=== PATIENT | female | born 1975 | race Two or more races ===

== ENCOUNTER 2019-02-27 21:11 | Emergency (ER) | payer MEDICAID ==
[~2019-02-27] VITALS: Ht 154.9 cm; Wt 106.6 kg
--- NOTE | 2019-02-27 21:25 | NUR ---
ED Nurse Note: RECIEVED PT FROM [place] WITH C/O INTERMITTENT PAIN IN RIGHT SIDE OF BREAST FOR PAST WEEK, PAIN IS INCREASING, NOTED MORE WHEN MOVING EXTREMITY, DENIES FEVERS, CP, OR ANY OTHER COMPLAITNS OR DISCOMFORTS.
--- NOTE | 2019-02-27 22:00 | NUR ---
ED Nurse Note: RINA TERESA WITH BREAST EXAM, PT TOLERATED WELL, WAITING FOR DISPOSITION.
--- NOTE | 2019-02-27 22:14 | Emergency Room Report ---
History of Present Illness General Chief Complaint: Pain Source: Patient Present Illness HPI 43-year-old female, presents with right breast pain x2 days with no apparent cause, she endorses an achy pain inside the breast, no leakage, no aggravating relieving factors, no radiation of the pain, no nausea no vomiting, no chest pain, no shortness of breath, patient presents for evaluation her last mammogram was years ago. Allergies: Coded Allergies: No Known Allergies (Unverified , 02/27/19) Patient History Past Medical History: see triage record Last Menstrual Period: 02/07/19 Now: No : 4 Para: 3 Reviewed Nursing Documentation: PMH: Agreed; PSxH: Agreed Nursing Documentation-PMH Past Medical History: No Stated History Review of Systems All Other Systems: negative except mentioned in HPI Physical Exam Vital Signs Date Time Temp Pulse Resp B/P (MAP) Pulse Ox O2 Delivery O2 Flow Rate FiO2 02/27/19 21:17 98.2 71 18 121/66 (84) 96 Sp02 EP Interpretation: reviewed, normal General Appearance: well appearing, no apparent distress, alert Head: normocephalic, atraumatic Eyes: bilateral eye PERRL, bilateral eye EOMI ENT: uvula midline, moist mucus membranes Neck: supple, thyroid normal, supple/symm/no masses Respiratory: lungs clear, no respiratory distress, no retraction, no accessory muscle use Cardiovascular #1: normal peripheral pulses, regular rate, rhythm, no edema, no gallop, no murmur, other - Right breast, no apparent masses, guardian family member was Tiffany ALLEN, checked in the right breast, no erythema, Gastrointestinal: non tender, soft, no guarding, no rebound Musculoskeletal: normal inspection Neurologic: alert, oriented x3 Psychiatric: mood/affect normal Skin: no rash, warm/dry Medical Decision Making Diagnostic Impression: Primary Impression: Breast pain in female ER Course 43-year-old female presents with right breast pain, no apparent cause, no obvious infection, counseled patient to obtain a mammogram, possible cancer, no chest pain, no shortness of breath, no evidence of ACS, pain is localized to the right breast Last Vital Signs Date Time Temp Pulse Resp B/P (MAP) Pulse Ox O2 Delivery O2 Flow Rate FiO2 02/27/19 21:17 98.2 71 18 121/66 (84) 96 Disposition: HOME, SELF-CARE Condition: Stable Referrals: [facility] Patient Instructions: Mammography, [id number] Additional Instructions: The patient was provided with discharge instructions, notified to follow-up with a primary care doctor and or specialist in the next 24-48 hours, and to return to the ED if they have worsening of their symptoms. Please note that this report is being documented using DRAGON technology. This can lead to erroneous entry secondary to incorrect interpretation by the dictating instrument. Please obtain a mammogram as an outpatient. Juan Manuel Zapata MD Feb 27, 2019 22:14
[2019-02-27 22:20] VITALS: BP 119/74
[2019-02-27 22:25] VITALS: BP 119/74
--- NOTE | 2019-02-27 22:33 | NUR ---
ER DISCHARGE NOTE: Patient is cleared to be discharged per ERMD, pt is aox4, on room air, with stable vital signs. pt was given dc and prescription instructions, pt was able to verbalize understanding, pt id band removed without complications. pt is able to ambulate with steady gait. pt took all belongings.
== END 2019-02-27 22:25 | disposition home or self-care (01) ==
LOC: EMR 21:23
DX: R07.81 Pleurodynia (principal)
CPT/HCPCS: 99282